=== PATIENT | male | born 1970 | race Caucasian/White ===

== ENCOUNTER → 2023-07-13 | Outpatient (CLI) | payer BC, SELFPAY ==
--- NOTE | 2023-07-13 10:52 | EKG12_ITS ---
Test Reason : PRE-OP Blood Pressure : / mmHG Vent. Rate : 056 BPM Atrial Rate : 056 BPM P-R Int : 168 ms QRS Dur : 098 ms QT Int : 430 ms P-R-T Axes : 070 039 051 degrees QTc Int : 414 ms Sinus bradycardia Otherwise normal ECG Confirmed by MELISA NGO, IFTIKHAR ([id number]), purchasing expeditor ANA ALBRIGHT ([id number]) on 07/14/2023 2:11:07 PM Referred By: Brielle Hawthorne Confirmed By:IFTIKHAR VINCENT MD
[2023-07-13 12:13] LABS: Absolute Lymphocyte Count 1.91 X10^3/uL (0.83-4.51); Absolute Neutrophil Count 5.1 X10^3/uL (2.0-7.7); Basophil# 0.08 X10^3/uL; Eosinophil# 0.16 X10^3/uL; Hematocrit 41.3 % (40-54); Hemoglobin 13.4 g/dL (13.0-16.5); Lymphocyte # 1.91 X10^3/ul (0.83-4.51); Lymphocyte % 24.1 % (19-41); Mean Corp Hgb Conc 32.4 g/dL (32-36); Mean Corpuscular Hgb 28.6 pg (27.0-32.0); Mean Corpuscular Volume 88.2 fL (80-94); Mean Platelet Vol. 10.4 fl (6.2-12.0); Monocyte# 0.62 X10^3/uL; Monocyte% 7.8 % (0-10); NRBC Flagged by Analyzer 0 % (0-5); Neutrophil # 5.13 X10^3/uL (2.7-7.7); Neutrophil % 64.8 % (47-70); Platelet Count 289 K/mm3 (150-450); RBC Distribution Width CV 12.6 % (11.6-14.6); RBC Distribution Width SD 40.6 fl (35.1-43.9); Red Blood Count 4.68 M/mm3 (4.6-6.2); White Blood Count 7.9 K/mm3 (4.4-11.0)
[2023-07-13 13:23] LABS: Anion Gap 6 (5-15); BUN 17 mg/dL (7-18); BUN/Creat Ratio 15.9 RATIO (10-20); Chloride 105 mmol/L (98-107); Creatinine, Serum 1.07 mg/dL (0.70-1.30); EST Glomerular Filtration Rate 77 mL/min (>60); Est Glom Filt Rate - Afr Amer 93 mL/min (>60); Glucose 91 mg/dL (74-106); Potassium 4.1 mmol/L (3.5-5.1); Sodium Level 139 mmol/L (136-145)
--- OUTSIDE RECORDS SUMMARY | 2023-07-13 19:05 | XMS RPT_ITS | CCD ---
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 Name Role Phone Unavailable Primary Care Provider UnavailGIOVANNI Turner Referring Unavailable GIOVANNI BEE Attending Unavailable Unavailable Primary Care Provider Unavailhoward e Medications Current Medications Medication Drug Class(es) Dates Sig (Normalized) Sig (Original) polyethylene glycol 3350 818883 mg / potassium chloride 2970 mg / sodium bicarbonate 6740 mg / sodium chloride 5860 mg / sodium sulfate 19397 mg powder for oral solution (1 source) Osmotic Laxative Start: 02-01-2022 End: 02-01-2022 peg 3350-Electrolytes (GOLYTELY) 236-22.74-6.74 -5.86 gram suspension Indications: Special screening for malignant neoplasms, colon Take 4,000 mL by mouth one time only for 1 dose. Refer to printed prep instructions from your provider. 4000 mL 0 02/01/2022 02/01/2022 Active Problems Problem Classification Problem Date Documented Da te Episodic/Chronic Other screening for suspected conditions (not mental disorders or infectious disease) (3 sources) Patient encounter status; Translations: [Encounter for screening for malignant neoplasm of colon] Onset: 02-22-2022 Episodic Results Test Name Value Interpretation Reference Range Facil ity Vital Signs Date Time Vital Sign Value Performing Clinician Faci lity 02-22-2022 11:24-0400 Diastolic blood pressure 65 mm[Hg] Giovanni Bee MD Work Phone: [facility] 02-22-2022 11:24-0400 Heart rate 49 /min Giovanni Bee MD Work Phone: [facility] 02-22-2022 11:24-0400 Respiratory rate 16 /min Giovanni Bee MD Work Phone: [facility] 02-22-2022 11:24-0400 SaO2% (BldA) [Mass fraction] 97 % Giovanni Bee MD Work Phone: [facility] 02-22-2022 11:24-0400 Systolic blood pressure 107 mm[Hg] Giovanni Bee MD Work Phone: [facility] 02-22-2022 09:49-0400 Body temperature 96.69 [degF] Giovanni Bee MD Work Phone: [facility] 02-22-2022 09:49-0400 Body weight 86.2 kg Giovanni Bee MD Work Phone: [facility] Encounters Encounter Date Encounter Type Care Provider Facility Start: 02-22-2022 End: 02-22-2022 ambulatory GIOVANNI BEE Facility:[facility] Start: 02-22-2022 End: 02-22-2022 Subsequent hospital visit by physician Giovanni Bee MD Work Phone: Ambulatory Surgery Procedures Date Procedure Procedure Detail Performing Clinician Start: 02-22-2022 Colonoscopy flx dx w /collj spec when pfrmd Giovanni Bee MD Work Phone: Start: 02-22-2022 Colonoscopy Giovanni barclay MD Work Phone: Plan of Treatment Date Care Activity Detail Author Start: 02-23-2032 Colonoscopy Colonoscopy [facility] Start: 02-23-2032 Colorectal Cancer Screening Colorectal Cancer Screening [facility] Start: 12-30-2022 Influenza vaccination Influenza Vaccine (#1) [facility] Start: 05-01-2022 Depression Assessment Depression Assessment [facility] Start: 12-30-2021 Influenza vaccination INFLUENZA (#1) [facility] Start: 09-08-2021 SHINGRIX VACCINE (1 of 2) SHINGRIX VACCINE (1 of 2) [facility] Start: 05-01-2021 DEPRESSION ASSESSMENT DEPRESSION ASSESSMENT [facility] Start: 09-08-2016 COLOGUARD (FIT-DNA) COLOGUARD (FIT-DNA) [facility] Start: 09-08-2016 Colonoscopy COLONOSCOPY [facility] Start: 09-08-2016 COLORECTAL CANCER SCREENING COLORECTAL CANCER SCREENING [facility] Start: 09-08-[address] COLONOGRAPHY [facility] Start: 09-08-2016 DIABETES SCREEN DIABETES SCREEN [facility] Start: 09-08-2016 Diabetes Screening Diabetes Screening [facility] Start: 09-08-2016 FECAL OCCULT BLOOD FECAL OCCULT BLOOD [facility] Start: 09-08-2016 SIGMOIDOSCOPY SIGMOIDOSCOPY [facility] Start: 05-02-2013 Urine microalbumin profile DTaP,Tdap,Td Vaccine (1 - Tdap) [facility] Start: 09-08-2006 Lipid 1996 panel - Serum or Plasma Lipid Screening [facility] Start: 09-08-2006 LIPID SCREEN LIPID SCREEN [facility] Start: 09-08-1990 Urine microalbumin profile DTAP,TDAP,TD (1 - Tdap) [facility] Start: 09-08-1989 HEPATITIS C SCREENING HEPATITIS C SCREENING [facility] Start: 09-08-1989 HIV SCREENING HIV SCREENING [facility] Start: 03-11-1972 COVID-19 VACCINE (#1) COVID-19 VACCINE (#1) [facility] Start: 1971 HEPATITIS B (1 of 3 - 3-dose series) HEPATITIS B (1 of 3 - 3-dose series) [facility] Start: 1971 Hepatitis B Vaccine (1 of 3 - 3-dose series) Hepatitis B Vaccine (1 of 3 - 3-dose series) [facility] End: 02-01-2023 Screening colonoscopy COLONOSCOPY SCREENING Endoscopy Routine Special screening for malignant neoplasms, colon 1 Occurrences starting 02/01/2022 until 02/01/2023 [facility] Work Phone: Payers Date Payer Category Payer Unknown [employer] PPO OOS [id number] 2019-Present [phone] [id number] [place] [address] PPO [id number] 2019 Unknown [id number] Social History Date Type Detail Facility Start: 02-22-2022 Tobacco smoking status NHIS Never smoked tobacco [facility] Start: 06-29-2019 Alcohol intake Not Asked Suzanna lagunas [facility] Start: 1970 Sex Assigned At Not on file [facility] Start: 02-22-2022 Tobacco use and exposure Smokeless tobacco non-user [facility] Start: 03-10-2022 Alcohol intake Current drinke r of alcohol (finding) [facility] Start: 04-07-2020 End: 02-22-2022 History of Social function [facility] Start: 04-07-2020 End: 02-22-2022 Tobacco use panel [facility] National Score (1-100), lower number is lower risk Not on file [facility] Start: 02-22-2022 Alcohol Comment occasional [facility] Start: 02-12-2022 End: 02-22-2022 Exposure to SARS-CoV-2 (event) Not sure [facility] NEGATED: Highlighted rowStart: NINF History of tobacco use Passive smoker [facility] Nurse Note 02-22-2022 Susan Christian, RN - 02/22/2022 11:04 AM EDT Note Date & Type Note Facility 02-22-2022 Nurse Note Pt received in PACU. Pt moderately drowsy, but arouses easily. Denies pain or nausea. Abd soft and non distended. Susan Christian, RN documented in this encounter [facility] Instructions 02-01-2022 Patient Instructions Note Date & Type Note Facility 02-01-2022 Instructions Giovanni Bee MD - 02/01/2022 6:57 AM EDT Images from the original note were not included. Bowel Preparation Instructions for: Golytely, Nulytely, Trilyte or Colyte (polyethylene glycol 3350 and electrolytes) IF YOU DO NOT FOLLOW THESE DIRECTIONS, YOUR COLONOSCOPY WILL BE CANCELLED. [facility] Instructions: Your bowel must be empty so that your doctor can clearly view your colon. Follow all of the instructions in this handout EXACTLY as they are written. Do NOT eat any solid food the ENTIRE day before your colonoscopy. Drink only clear liquids. Buy your bowel preparation at least 5 days before your colonoscopy. TRANSPORTATION on the Day of Your Exam A responsible person MUST be present with you at Check In prior to your colonoscopy and REMAIN in the endoscopy area until you are discharged. You are NOT ALLOWED to drive, take a taxi or bus, or leave the Endoscopy Center ALONE. If you do not have a responsible independent driver (family member or friend) with you to take you home, your exam cannot be done with sedation and will be cancelled. Please bring a list of all of your current medications, including any Over-the Counter medications with you. Medications If you take insulin, diabetic medications or blood thinners such as Coumadin (warfarin), Plavix (clopidogrel), Ticlid (ticlopidine hydrochloride), Agrylin (anagrelide), Xarelto (Rivaroxaban), Pradaxa (Dabigatran), Eliquis (Apixaban), and Effient (Prasugrel). You MUST call the doctors who orders those medicines for instructions on altering the dosage before your colonoscopy. All other medications should be taken the day of the exam with a sip of water including ASPIRIN. Five (5) Days Before Your Colonoscopy Do NOT take medicines that stop diarrhea - such as Imodium, Kaopectate, or Pepto Bismol. Do NOT take fiber supplements - such as Metamucil, Citrucel, or Perdiem. Do NOT take products that contain iron - such as multi-vitamins (the label lists what is in the products). Do NOT take Vitamin E. Buy the prescription bowel preparation solution at your local pharmacy or drugstore pharmacy. 03/2019 Bowel Preparation Instructions for: Golytely, Nulytely, Trilyte or Colyte (polyethylene glycol 3350 and electrolytes) Three (3) Days Before Your Colonoscopy Do NOT eat high-fiber foods - such as popcorn, beans, seeds (flax, sunflower, quinoa), multigrain bread, nuts, salad/vegetables, or fresh and dried fruit. One (1) Day Before Your Colonoscopy Only drink clear liquids the ENTIRE DAY before your colonoscopy. Do NOT eat any solid foods. Drink at least 8 ounces of clear liquids every hour after waking up. The clear liquids you can drink include: Clear Liquid (NO RED LIQUIDS) DO NOT DRINK Gatorade, Pedialyte or Powerade Clear broth or bouillon Coffee or tea (no milk or non-dairy creamer) Carbonated and non-carbonated soft drinks Xander-Aid or other fruit flavored drinks Strained fruit juices (no pulp) Jell-O, popsicles, hard candy Water Alcohol Milk or non-dairy creamers Noodles or vegetables in soup Juice with pulp Liquid you cannot see through Do not use tobacco/vaping products The bowel preparation solution will be consumed in two parts. Mix the solution the evening before your colonoscopy and refrigerate before drinking. You may add the flavor pack that came with the bowel preparation. Do NOT add ice, sugar or any other flavorings to the solution. Part 1 At 6:00 PM - Evening before your colonoscopy Drink an 8-oz glass of bowel preparation every 10 minutes for a total of 8 glasses. You may continue to drink clear liquids until midnight. Part 2 On the day of your colonoscopy you may drink clear liquids up to (three) 3 hours before your procedure. 4 1/2 hours before your colonoscopy Drink an 8-oz glass of bowel preparation every 10 minutes for a total of 8 glasses. Fifteen (15) minutes later, drink an 8-oz glass of clear liquids every 15 minutes for a total of 2 glasses. You may continue to drink clear liquids up to (three) 3 hours before your exam. 2 03/2019 documented in this encounter [facility] Note 01-19-2022 Telephone Encounter - Susan Christian RN - 01/19/2022 1:50 PM EDT Note Date & Type Note Facility 01-19-2022 Miscellaneous Notes Formattin g of this note might be different from the original. Pt called to schedule colonoscopy. Spoke with Dr. Bee previously and he agreed to do patient as open access. Please place order for colonoscopy and send order for Golytely prep to [facility]. Then please call patient to get procedure scheduled. Susan Christian RN documented in this encounter [facility] Evaluation note Note Date & Type Note Facility documented in this encounter [facility] Evaluation note Note Date & Type Note Facility documented in this encounter [facility] Reason for referral (narrative) Outpatient Procedure (Routine) - Pending Review Note Date & Type Note Facility Referral ID Status Reason Start Date Expiration Date Visits Requested Visits Authorized [id number] Pending Review Auto-Generat ed Referral 02/01/2022 02/01/2023 1 1 [facility] Reason for referral (narrative) Outpatient Procedure (Routine) - Closed Note Date & Type Note Facility Referral ID Status Reason Start Date Expiration Date V isits Requested Visits Authorized [id number] Closed Auto-Generate d Referral 02/18/2022 04/30/2022 1 1 [facility] Reason for visit Narrative Outpatient Procedure (Routine) - Closed Note Date & Type Note Facility Referral ID Status Reason Start Date Expiration Date V isits Requested Visits Authorized [id number] Closed Auto-Generate d Referral 02/18/2022 04/30/2022 1 1 [facility] Summary Purpose Family History No Family History Records Found Advance Directives No Advanced Directives Records Found Medications Administered Section Inactive Administered Medications - up to 3 most recent administrations Medication Order MAR Action Action Date Dose Rate Site diphenhydrAMINE 12.5-50 mg injection (BENADRYL) 12.5-50 mg, INTRAVENOUS, DIRECTED, Starting on 02/22/22 at 1100, Until 02/22/22 at 1459, DOSING DIRECTED BY PHYSICIAN FOR PROCEDURAL SEDATION ONLY, Intraprocedure Given 02/22/2022 10:42 AM EDT 50 mg fentaNYL 50 mcg/mL 25-100 mcg injection (SUBLIMAZE) 25-100 mcg, INTRAVENOUS, DIRECTED, Starting on 02/22/22 at 1100, Until 02/22/22 at 1459, DOSING DIRECTED BY PHYSICIAN FOR PROCEDURAL SEDATION ONLY, Intraprocedure Given by LIP 02/22/2022 10:40 AM EDT 25 mcg Additional Source Comments Source Comments (unrecognize d section and content) In the event this informatio n is protected by the Federal Confidentiality of Alcohol and Drug Abuse Patient Records regulations: The Federal rules restrict any use of the information to criminally investigate or prosecute any alcohol or drug abuse patient.[facility] the event this information is protected by the Federal Confidentiality of Alcohol and Drug Abuse Patient Records regulations: The Federal rules restrict any use of the information to criminally investigate or prosecute any alcohol or drug abuse patient.[facility] Reason for Visit (unrecogniz ed section and content) (unrecognized sect ion and content) No Status Records Found INFORMATION SOURCE (unrecogn ized section and content) FOR RECORDS PERTAINING TO PATIENTS WHO ARE OR HAVE BEEN ENROLLED IN A CHEMICAL DEPENDENCY/SUBSTANCEABUSE PROGRAM, SOME INFORMATION MAY BE OMITTED. This clinical summary was aggregated from multiple sources. Caution should be exercised in using it in the provision of clinical care. This summary normalizes information from multiple sources, and as a consequence, information in this document may materially change the coding, format and clinical context of patient data. In addition, data may be omitted in some cases. CLINICAL DECISIONS SHOULD BE BASED ON THE PRIMARY CLINICAL RECORDS. [facility] [employer] [facility]. provides no warranty or guarantee of the accuracy or completeness of information in this document.
== END | disposition home or self-care (01) ==
LOC: PSN 10:50
PROVIDERS: Referring Provider Physician Assistant Surgical; Visit Provider Physician Assistant Surgical
DX: Z01.810 Encounter for preprocedural cardiovascular examination (principal)
CPT/HCPCS: 36415; 80048; 85025; 93005

== ENCOUNTER → 2024-12-18 | Outpatient (CLI) | payer BC, SELFPAY ==
--- NOTE | 2024-12-18 16:19 | RAD_ITS ---
PROCEDURE: ELBOW MIN 3 VIEWS 12/18/2024 REASON FOR EXAM: RIGHT ELBOW PAIN TECHNIQUE: ELBOW MIN 3 VIEWS Laterality: Right COMPARISON: None. RAD/Elbow min 3 Views IMPRESSION: No right elbow joint effusion is seen. No significant arthritic process or joint narrowing is noted. No significant enthesopathy is seen. Satisfactory osseous alignment is seen. No fracture or dislocation is evident. Reading Location: [place] [address]
== END | disposition home or self-care (01) ==
LOC: MTRAD 15:58
PROVIDERS: Referring Provider Family Medicine; Visit Provider Family Medicine
DX: M25.521 Pain in right elbow (principal)
CPT/HCPCS: 73080

== ENCOUNTER → 2025-01-20 | Outpatient (CLI) | payer BC, SELFPAY ==
[2025-01-20 16:52] LABS: Anion Gap 12 (5-15); BUN 21 mg/dL (4-19); BUN/Creat Ratio 20.4 RATIO (10-20); Calcium,Total 9.1 mg/dL (7.6-11.0); Carbon Dioxide 22.5 mmol/L (21.0-32.0); Chloride 105 mmol/L (98-108); Cholesterol 199 mg/dL (<=200); Glucose 95 mg/dL (70-99); Low Density Lipoprotein Calc. 124 mg/dL; Potassium 4.5 mmol/L (3.3-5.1); Triglycerides 152 mg/dL; Very Low Density Lipoprotein 30 mg/dL (5-40); cholesterol:hdl ratio screen 4.47
== END | disposition home or self-care (01) ==
LOC: MTLAB 11:22
PROVIDERS: PCP Family Medicine; Referring Provider Family Medicine; Visit Provider Family Medicine
DX: Z00.00 Encounter for general adult medical examination without abnormal findings (principal)
CPT/HCPCS: 36415; 80048; 80061